=== PATIENT | female | born 1985 | race Caucasian/White ===

== ENCOUNTER 2017-05-10 11:26 | Emergency (ER) | payer SELFPAY ==
[~2017-05-10] VITALS: Ht 167.6 cm; Wt 48.0 kg
[2017-05-10 11:36] VITALS: BP 109/57; PULSE 58; RESP 16; TEMP 97.5; O2SAT 100
[2017-05-10] MEDS ORDERED: CLIN1CAP5 PO (11:44)
[2017-05-10] MEDS ORDERED: NAPR500T PO (11:44)
--- NOTE | 2017-05-10 12:06 | PD ---
HPI Chief Complaint: Wound/Suture/Staple Re-Check Time Seen by Provider: 11:57 Travel History International Travel<30 days: No Contact w/Intl Traveler<30days: No Traveled to known affect area: No History of Present Illness HPI 31-year-old female that presents to the ED for evaluation of wound check. Patient had an abscess drained about 2 days ago at a different facility in [place]. Per family and patient they're from out of town and they're going to a detox facility for her to be admitted for IV drugs. Patient comes here because they cannot admit her if she has that packing in place. She is taking clindamycin. Per friend and patient the infection itself seems to be getting better. She injected herself in the hand and this is followed the abscesses develop. She has no other medical issues. She denies any fevers chills or sweats. She states that her pain is severe. No allergies to medication. Other medical issues. PFSH Past Medical History Diminished Hearing: No Influenza Vaccination: No ?: Not LMP: ONE MONTH Social History Alcohol Use: No Tobacco Use: Yes Substance Use: Yes Allergies-Medications (Allergen,Severity, Reaction): Coded Allergies: No Known Allergies (Verified Allergy, Unknown, 05/10/17) Reported Meds & Prescriptions Reported Meds & Active Scripts Active Reported Clindamycin (Clindamycin HCl) 150 Mg Cap 150 Mg PO Q6H Naproxen 500 Mg Tab 500 Mg PO BID Review of Systems Except as stated in HPI: all other systems reviewed are Neg Physical Exam Narrative GENERAL: SKIN: Warm and dry. HEAD: Atraumatic. Normocephalic. EYES: Pupils equal and round. No scleral icterus. No injection or drainage. ENT: No nasal bleeding or discharge. Mucous membranes pink and moist. Tongue is midline. No uvula deviation. NECK: Trachea midline. No JVD. CARDIOVASCULAR: Regular rate and rhythm. RESPIRATORY: No accessory muscle use. Clear to auscultation. Breath sounds equal bilaterally. GASTROINTESTINAL: Abdomen soft, non-tender, nondistended. Hepatic and splenic margins not palpable. MUSCULOSKELETAL: Extremities without clubbing, cyanosis, or edema. No obvious deformities. Full range of motion of the upper and lower extremity bilaterally. Patient has a healing abscess on the dorsal aspect of the right hand. Patient has packing in place. Minimal purulence noted. Erythema appears to be more pinkish than breath. Not warm to touch. Able to move all fingers. 2+ pulses bilaterally. Good capillary refill. NEUROLOGICAL: Awake and alert. No obvious cranial nerve deficits. Motor grossly within normal limits. Five out of 5 muscle strength in the arms and legs. Normal speech. PSYCHIATRIC: Appropriate mood and affect; insight and judgment normal. Data Data Last Documented VS Vital Signs Date Time Temp Pulse Resp B/P (MAP) Pulse Ox O2 Delivery O2 Flow Rate FiO2 05/10/17 11:36 97.5 58 16 109/57 (74) 100 Orders Orders Clindamycin (Cleocin) (05/10/17 12:15) Wound Care (05/10/17 12:02) MDM Medical Decision Making Medical Screen Exam Complete: Yes Emergency Medical Condition: Yes Medical Record Reviewed: Yes Differential Diagnosis Wound check versus abscess versus cellulitis Narrative Course 31-year-old female that presents to the ED for evaluation of wound check. Patient was properly examined and was found to have signs and symptoms consistent appears to be abscess recheck. Patient had this abscess draining a different facility. Patient's coming here to get this addressed that she can go to a detox facility today. Her only complaint is of pain. Patient is compliant with her medications. This time after explained procedure to the patient she agreed to it packing was removed by me with minimal discomfort for the patient. New dressing was applied. Patient was given dose of clindamycin here as she apparently missed a dose yesterday. Told to continue taking medications. Follow with detox facility to get her substance abuse addressed so she can get better. Follow with PCP. See ED worsening symptoms. Diagnosis Primary Impression: Encounter for wound re-check Patient Instructions: General Instructions Additional Instructions: Follow-up with PCP. Follow up with detox facility. See ED for any worsening symptoms. Continue taking your antibiotic as prescribed by a previous facility. Continue taking Tylenol or Motrin for pain or the naproxen given to you. Good luck with your recovery. Med/Other Pt SpecificInfo: No Change to Meds Disposition: 01 DISCHARGE HOME Condition: Marcio Singh May 10, 2017 12:06
[2017-05-10] MEDS ORDERED: CLINDAMYCIN 150 MG CAP PO ONE (12:15)
== END 2017-05-10 12:24 | disposition home or self-care (01) ==
LOC: PHED 11:26
DX: L08.9 Local infection of the skin and subcutaneous tissue, unspecified (principal)
CPT/HCPCS: 99283